=== PATIENT | female | born 1970 | race African-American/Black ===

== ENCOUNTER 2017-07-05 12:17 | Emergency (ER) | payer MEDICAID, OTHER ==
[2017-07-05 14:24] LABS: Bilirubin Negative (Negative); Blood, Urine Negative (Negative); Glucose, Urine (Dipstick) Negative (Negative); Leukocyte Negative (Negative); Nitrite Negative (Negative); Protein, Urine (Dipstick) Negative (Neg-Trace); Specific Gravity, Urine 1.025 (1.005-1.030); Urobilinogen 0.2 mg/dL (0.2-1.0)
[2017-07-05 14:26] LABS: Clarity CLEAR (Clear)
[2017-07-05] MEDS ORDERED: predniSONE 20 MG TAB ONE (15:36)
== END 2017-07-05 16:00 | disposition home or self-care (01) ==
LOC: ERS 12:17
DX: M54.42 Lumbago with sciatica, left side (principal)
CPT/HCPCS: 81003; 99283; J7506